=== PATIENT | female | born 1985 | race African-American/Black ===

== ENCOUNTER → 2021-09-28 13:30 | Outpatient (BNVA) | payer OTHER, SELFPAY | PROVIDERS: Visit Provider Psychiatry & Neurology Neurology ==

== ENCOUNTER → 2021-11-17 11:06 | Outpatient (REF) | payer OTHER, SELFPAY ==
--- NOTE | ~2021-11-17 | NM_ITS ---
EXAMINATION: NM BONE SCAN OF THE WHOLE BODY CLINICAL INFORMATION: Right frontal lobe lesion. COMPARISON: CT brain 10/13/2021 from [facility]. TECHNIQUE: Multiple gamma scintillation camera images of the whole body were performed 3 hours following the intravenous administration of 35 mCi Tc-99m MDP. FINDINGS: In the head, there is a focal area of increased activity seen in the right frontal horn which corresponds to the lytic lesion on the recent CT exam. On CT it measures 22.2 x 11.2 mm. In the thoracic cage and upper extremities, no abnormal activity seen in the thoracic cage or the upper extremities. In the spine, no abnormal activity seen in the entire spine. In the pelvis, no abnormal activity seen in the pelvis except for physiological activity in the the urinary bladder In the lower extremities, no abnormal activity seen in both lower extremities. No other definite bony abnormalities are noted. The urinary bladder and faint visualization of both kidneys are noted. NM/NM bone scan whole body IMPRESSION: Moderate increase activity seen in the right frontal bone corresponding to the adnexa termination lytic lesion on recent CT. The lesion is suspicious for primary bone lesion. Recommend surgical evaluation. Rest of the whole body bone scan appears unremarkable.
== END ==
LOC: HO.NUCMED 11:06
PROVIDERS: Visit Provider Internal Medicine Medical Oncology
DX: M89.9 Disorder of bone, unspecified (principal)
CPT/HCPCS: 78306; A9503

== ENCOUNTER → 2023-02-07 15:41 | Outpatient (BNVA) | payer OTHER, SELFPAY | PROVIDERS: Visit Provider Psychiatry & Neurology Neurology | DX: G43.109 Migraine with aura, not intractable, without status migrainosus (principal) | CPT/HCPCS: 99212 ==

== ENCOUNTER 2023-05-23 14:09 | Outpatient (AMB) | payer OTHER, SELFPAY ==
--- NOTE | 2023-05-23 14:19 | A.OFFVIS_ITS ---
Intake Vital Signs 05/23/23 14:21 Weight 250 lb BP 122/68 Blood Pressure Location Lt brachial Position Sitting Pulse 86 Pulse Source Pulse Oximeter Pulse Oximetry (%) 100 Oxygen Delivery Method Room Air Intake Visit Reasons: headaches, prev pt of RA-confirmed Intake Note: Pt here for fup headaches , complains today of tingling down (L) arm x 4 weeks Allergies Penicillins [PENICILLINS] Allergy (Unknown, Verified 05/23/23 14:24) UNKNOWN amoxicillin Allergy (Verified 05/23/23 14:24) Hives Medication List - Last Reconciled 05/23/23 by Belinda Love MD cholecalciferol (vitamin D3) 10 mcg PO DAILY magnesium oxide 400 mg PO DAILY metformin 500 mg PO BID norethindrone-ethin estradiol 1-35 mg-mcg (Alyacen) 1 tab PO DAILY riboflavin (vitamin B2) 400 mg PO DAILY sumatriptan succinate 50 mg PO Q2-4H PRN HPI HPI Comments History of Present Illness Details 37y/o female comes for follow up of migr nancy with aura.Her migraines have improved she has 1-2 a month Her migraines are usually preceded by blurry vision, tunnel, blind spots, black spots followed by headaches bitemporal or right temporal, pounding throbbing pain.she has nausea, photophobia , phonophobia and dizziness. no numbness or tingling , no weakness. she takes magnesium 400mg qhs , riboflavin qam. she takes imitrex . she stopped taking tylenol and ibuprofen she follows up with Dr. Cherry for a benign mass Now she reports left UE pain and tingling.She reports muscle tightness in left side of neck she denies any shooting pain she denies numbness or weakness. [facility] Medical History (Updated 05/23/23 @ 14:37 by Belinda Love MD) Paresthesias Frequent headaches Migraine with aura Polycystic bilateral ovaries Anemia Obesity Cervical spondylosis Migraine Surgical History H/O wisdom tooth extraction History of cholecystectomy Family History Father Diabetes mellitus Paternal Grandmother Breast cancer Mother Tonsil cancer Social History Household Members: Children Housing: Apartment Are you a primary rn urgent care to a significant other at home: No Do you presently have visiting nurse or other home services: No Alcohol intake: never Patient Tobacco Use Status: Never used Tobacco Substance Use Type: Marijuana service: No Current occupational status: employed Physical Exam Vital Signs: Last Vital Signs Pulse 86 05/23/23 14:21 BP 122/68 05/23/23 14:21 Pulse Ox 100 05/23/23 14:21 Oxygen Delivery Method Room Air 05/23/23 14:21 Const Orientation/consciousness: patient oriented x3 HEENT Head: Yes normocephalic and Yes atraumatic Eyes Pupils: Equal, round and reactive pupils present Neuro General: patient oriented x3, moves all extremities and no focal motor deficits Cranial nerves: Yes Facial sensation intact/muscles of mastication intact, Yes Equal, round and reactive pupils present, Yes Bilaterally intact EOM present, Yes Nystagmus not present, Yes Normal facial strength present and Yes Midline tongue present Cognition (Neuro): normal cognition Gait exam (Neuro): Normal gait present Motor exam (neuro): 5/5 motor strength present throughout Coordination: [id number] test normal Assessment & Plan Assessment & Plan (1) Migraine with aura: Code(s): G43.109 - Migraine with aura, not intractable, without status migrainosus (2) Frequent headaches: Code(s): R51.9 - Headache, unspecified (3) Paresthesias: Comment: left UE - related to cervical spondylosis Code(s): R20.2 - Paresthesia of skin Plan Magnesium 400mg qhs imitrex 50mg prn for migraines Decrease tylenol and ibuprofen use Track headaches continue Vit B 2 400mg qam tylenol as needed Patient sees Dr. Cherry for benign mass C spine X ray PT for neck Orders: Orders XR cervical spine 3V Today M47.812 - Spondylosis without myelopathy or radiculopathy, cervical region, R20.2 - Paresthesia of skin PT Evaluation and Treatment Today M47.812 - Spondylosis without myelopathy or radiculopathy, cervical region, R20.2 - Paresthesia of skin Medications: Discontinued topiramate Discontinued Reason: Patient no longer taking 25 mg PO DAILY 30 tabs 6RF Coding Level of Care Code Est Pt Level 4 (29879) Diagnoses Migraine with aura G43.109 Frequent headaches R51.9 Paresthesias R20.2
[2023-05-23 14:21] VITALS: BP 122/68; PULSE 86; O2SAT 100
== END 2023-05-23 14:39 | disposition home or self-care (01) ==
PROVIDERS: Visit Provider Psychiatry & Neurology Neurology
DX: G43.109 Migraine with aura, not intractable, without status migrainosus (principal); R51.9 Headache, unspecified; R20.2 Paresthesia of skin
CPT/HCPCS: 99214

== ENCOUNTER → 2023-05-23 14:09 | Outpatient (BNVA) | payer OTHER, SELFPAY | PROVIDERS: Visit Provider Psychiatry & Neurology Neurology | DX: G43.109 Migraine with aura, not intractable, without status migrainosus (principal); R51.9 Headache, unspecified; R20.2 Paresthesia of skin | CPT/HCPCS: 99212 ==

== ENCOUNTER 2023-11-20 15:32 | Outpatient (AMB) | payer OTHER, SELFPAY ==
--- NOTE | 2023-11-20 15:34 | A.OFFVIS_ITS ---
Intake Vital Signs 11/20/23 15:38 Height 5 ft 5 in Weight 250 lb BMI 41.6 BP 112/80 Blood Pressure Location Rt brachial Position Sitting Respiration 16 Pulse 81 Pulse Source Pulse Oximeter Pulse Oximetry (%) 99 Oxygen Delivery Method Room Air Intake Visit Reasons: 6 mo f/u for Headache-CONF Intake Note: Pt presents for a 6 month follow up for headaches. Pt states her headaches have worsened since her last visit. They happen twice a week, more intense and include vision loss . Recovery Rn Required: No Allergies Penicillins [PENICILLINS] Allergy (Unknown, Verified 11/20/23 15:35) UNKNOWN amoxicillin Allergy (Verified 11/20/23 15:35) Hives Medication List - Last Reconciled 11/20/23 by Belinda Love MD cholecalciferol (vitamin D3) 10 mcg PO DAILY magnesium oxide 400 mg PO DAILY metformin 500 mg PO BID riboflavin (vitamin B2) 400 mg PO DAILY sumatriptan succinate 50 mg PO Q2-4H PRN HPI HPI Comments History of Present Illness Details 37y/o female comes for follow up of migr nancy with aura.The headaches are well controlled but now she has frequent visual aura -lasting 30 minutes about 1-2 a week. she has double vision , blurry vision flashing lights and has a peripheral loss of vision and photophobia. she had eye exam last month . Her migraines are usually preceded by blurry vision, tunnel, blind spots, black spots followed by headaches bitemporal or right temporal, pounding throbbing pain.she has nausea, photophobia , phonophobia and dizziness. no numbness or tingling , no weakness. she takes magnesium 400mg qhs , riboflavin qam. she takes imitrex . she stopped taking tylenol and ibuprofen she follows up with Dr. Cherry for a benign mass - had a recent MRI and it is stable. The neck pain improved. [facility] Medical History (Updated 11/20/23 @ 16:03 by Belinda Love MD) Ocular migraine Paresthesias Frequent headaches Migraine with aura Polycystic bilateral ovaries Anemia Obesity Cervical spondylosis Migraine Surgical History H/O wisdom tooth extraction History of cholecystectomy Family History Father Diabetes mellitus Paternal Grandmother Breast cancer Mother Tonsil cancer Social History Household Members: Children Housing: Apartment Are you a primary day care home mother to a significant other at home: No Do you presently have visiting nurse or other home services: No Alcohol intake: never Patient Tobacco Use Status: Never used Tobacco Substance Use Type: Marijuana service: No Current occupational status: employed Physical Exam Vital Signs: Last Vital Signs Pulse 81 11/20/23 15:38 Resp 16 11/20/23 15:38 BP 112/80 11/20/23 15:38 Pulse Ox 99 11/20/23 15:38 Oxygen Delivery Method Room Air 11/20/23 15:38 BMI result Body Mass Index 41.6 Const Orientation/consciousness: patient oriented x3 HEENT Head: Yes normocephalic and Yes atraumatic Eyes Pupils: Equal, round and reactive pupils present Neuro General: patient oriented x3, moves all extremities and no focal motor deficits Cranial nerves: Yes Facial sensation intact/muscles of mastication intact, Yes Equal, round and reactive pupils present, Yes Bilaterally intact EOM present, Yes Nystagmus not present, Yes Normal facial strength present and Yes Midline to ngue present Cognition (Neuro): normal cognition Gait exam (Neuro): Normal gait present Motor exam (neuro): 5/5 motor strength present throughout Coordination: [id number] test normal Assessment & Plan Assessment & Plan (1) Migraine with aura: Code(s): G43.109 - Migraine with aura, not intractable, without status migrainosus (2) Ocular migraine: Code(s): G43.109 - Migraine with aura, not intractable, without status migrainosus Plan I will trial her on topiramate 50mg qhs Magnesium 400mg qhs imitrex 50mg prn for migraines Decrease tylenol and ibuprofen use Track headaches continue Vit B 2 400mg qam tylenol as needed Patient sees Dr. Cherry for benign mass Medications: New topiramate 50 mg PO BEDTIME 30 tabs 5RF Coding Level of Care Code Est Pt Level 4 (77708) Diagnoses Migraine with aura G43.109 Ocular migraine G43.109
[2023-11-20 15:38] VITALS: BP 112/80; PULSE 81; RESP 16; O2SAT 99; BMI 41.6
== END 2023-11-20 16:07 | disposition home or self-care (01) ==
PROVIDERS: Visit Provider Psychiatry & Neurology Neurology
DX: G43.109 Migraine with aura, not intractable, without status migrainosus (principal)
CPT/HCPCS: 99214

== ENCOUNTER → 2023-11-20 15:32 | Outpatient (BNVA) | payer OTHER, SELFPAY | PROVIDERS: Visit Provider Psychiatry & Neurology Neurology | DX: G43.109 Migraine with aura, not intractable, without status migrainosus (principal) | CPT/HCPCS: 99212 ==

== ENCOUNTER 2024-08-26 12:36 | Outpatient (AMB) | payer OTHER, SELFPAY ==
--- NOTE | 2024-08-26 12:38 | MHC.OFFVIS ---
Vital Signs 08/26/24 12:39 Height 5 ft 5 in Weight 245 lb BMI 40.8 Intake Visit Reasons: Follow up Intake Note: Patient presents for follow up Allergies Penicillins [PENICILLINS] Allergy (Unknown, Verified 08/26/24 12:40) UNKNOWN amoxicillin Allergy (Verified 08/26/24 12:40) Hives Medication List - Last Reconciled 08/26/24 by Belinda Love MD cholecalciferol (vitamin D3) 10 mcg PO DAILY magnesium oxide 400 mg PO DAILY metformin 500 mg PO BID riboflavin (vitamin B2) 400 mg PO DAILY sumatriptan succinate 50 mg PO Q2-4H PRN HPI Comments Details: 38y/o female comes for follow up of migraine with aura. she had COVID 4-5 weeks ago and has been having more headaches almost everyday.These headaches are not associated with visual aura or symptoms. She also reports on and off numbness in her right hand - when she sleeps. Her migraines are usually preceded by blurry vision, tunnel, blind spots, black spots followed by headaches bitemporal or right temporal, pounding throbbing pain.she has nausea, photophobia , phonophobia and dizziness. no numbness or tingling , no weakness. she stopped magnesium 400mg qhs , riboflavin qam.she also stopped topiramate. she takes imitrex . she stopped taking tylenol and ibuprofen she follows up with Dr. Cherry for a benign mass - had a recent MRI and it is stable. [facility] Medical History (Updated 08/26/24 @ 12:58 by Belinda Love MD) Cervicalgia Numbness and tingling in right hand Ocular migraine Paresthesias Frequent headaches Migraine with aura Polycystic bilateral ovaries Anemia Obesity Cervical spondylosis Migraine Surgical History H/O wisdom tooth extraction History of cholecystectomy Family History Father Diabetes mellitus Paternal Grandmother Breast cancer Mother Tonsil cancer Social History Household Members: Children Housing: Apartment Are you a primary child care centre director to a significant other at home: No Do you presently have visiting nurse or other home services: No Alcohol intake: never Patient Tobacco Use Status: Never used Tobacco Substance Use Type: Marijuana service: No Current occupational status: employed Physical Exam Vital Signs: BMI result Body Mass Index 40.8 Const Orientation/consciousness: patient oriented x3 HEENT Head: Yes normocephalic and Yes atraumatic Eyes Pupils: Equal, round and reactive pupils present Neck Other: mild tightness and tenderness in right side of neck Neuro General: patient oriented x3, moves all extremities and no focal motor deficits Cranial nerves: Yes Facial sensation intact/muscles of mastication intact, Yes Equal, round and reactive pupils present, Yes Bilaterally intact EOM present, Yes Nystagmus not present, Yes Normal facial strength present and Yes Midline tongue present Cognition (Neuro): normal cognition Gait exam (Neuro): Normal gait present Motor exam (neuro): 5/5 motor strength present throughout Coordination: [id number] test normal Assessment & Plan Assessment & Plan (1) Migraine with aura: Code(s): G43.109 - Migraine with aura, not intractable, without status migrainosus Category: Medical Qualifiers: Intractability: not intractable (2) Ocular migraine: Code(s): G43.109 - Migraine with aura, not intractable, without status migrainosus Category: Medical (3) Numbness and tingling in right hand: Code(s): R20.0 - Anesthesia of skin; R20.2 - Paresthesia of skin Category: Medical Plan Magnesium 400mg qhs imitrex 50mg prn for migraines Track headaches Restart Vit B 2 400mg qam and magnesium 400mg qhs PT for neck pain will consider EMG Right hand wrist splint tylenol as needed Patient sees Dr. Cherry for benign mass Orders: Orders PT Evaluation and Treatment Today M54.2 - Cervicalgia Medications: New [wrist splint] As directed- wear in right wrist every night 1 ea 0RF R20.0 - Anesthesia of skin, R20.2 - Paresthesia of skin Discontinued topiramate Discontinued Reason: Patient no longer taking 50 mg PO BEDTIME 30 tabs 5RF Coding Level of Care Code Est Pt Level 4 (59930) Complex EM visit Add On G2211 Diagnoses Migraine with aura G43.109 Intractability: not intractable Ocular migraine G43.109 Numbness and tingling in right hand R20.0; R20.2
--- OUTSIDE RECORDS SUMMARY | 2024-08-26 12:38 | XMS_ITS ---
Author Organization [facility], Address [address] [place] [address] Care Team Providers Care Catering Convention Services Manager Name Role Phone Corwin Roy Unavailable [phone] ALLERGIES, ADVERSE REACTIONS, ALERTS Substance Code Code System Type Reaction Severity Status Start Date End Date Penicillins RxNorm Drug allergy () 0 No known non-drug allergies RxNorm Other substance maryana rgy () 1 amoxicillin 723 RxNorm Drug allergy () 1 amoxicillin 723 RxNorm Drug allergy () 0 Penicillins Unknown Drug allergy () 1 Seasonal (unlisted or unknown allergen) RxNorm () 0 MEDICATIONS Medication Code Code System Start Date Stop Date Route Dosage Directions Fill Instructions metformin 0 RxNorm oral riboflavin (vitamin B2) RxNorm 023 doxycycline hyclate 2656694 RxNorm 2023 oral 1 metronidazole 352618 RxNorm 08/13 vaginal 1 magnesium RxNorm 2021 albuterol sulfate 5247519 RxNorm 10/03/19 24 inhalation 2 ondansetron 209593 RxNorm 11/02/19 23 2022 oral 2 OptiChamber Autumn [facility] 0 RxNorm 10/03/19 24 miscellaneo us medroxyprogestero ne acetate RxNorm 024 PROBLEMS Problem Name Code Code System Start Date End Date Stat us COVID-19, Exposure to (V71.83, Z03.818) 008542881 [facility] 07/29/2020 Inactive Upper Respiratory Infection, acute (465.9, J06.9) 32029495 [facility] 03/11/2021 Inactive Cough (R05) [facility] 03/14/2021 Inactive Chest pain, unspecified (786.50, R07.9) 448[facility] Inactive Contact with and (suspected) exposure to other viral communicable diseases (Z20.828) [facility] 06/13/2021 Inactive COVID-19, confirmed by laboratory testing (U07.1) 141101508 [facility] I nactive Headache, unspecified (R51.9) [facility] 09/06/2021 Inactive Polycystic ovarian syndrome [id number] [facility] Active Viral infection, unspecified (B34.9) 14547700 [facility] Inactive Acne, unspecified (L70.9) 64691601 [facility] Inactive Acute vaginitis (N76.0) 54192696 [facility] Inactive Fever, unspecified (R50.9) [facility] Inactive Frequency of [facility]icturition (R35.0) [facility] Inactive Encounter for test, result negative (Z32.02) [facility] Inactive Other specified diabetes mellitus 84055283 [facility] Active Acute serous otitis media, bilateral [id number] [facility]24 Active Furuncle, unspecified [id number] [facility] 06/08/2024 Active ENCOUNTERS Encounter Diagnosis Code Code System Date Stat us Acute cough [id number] [facility] 02/20/2024 Active IMMUNIZATIONS * None VITAL SIGNS Code Code System Vitals Name Date Value and Un its 8462-4 [facility] Blood Pressure-Diastolic 02/20/2024 75 mmHg 8480-6 [facility] Blood Pressure-Systolic 02/20/2024 1 11 mmHg 8867-4 [facility] Heart Rate 02/20/2024 89 /min 9279-1 [facility] Respiratory Rate 02/20/2024 18 /min 8310-5 [facility] Body Temperature 02/20/2024 98.5 F 04954-1 [facility] Oxygen Saturation 02/20/2024 97 % SOCIAL HISTORY * None PROCEDURES * None RESULTS Test Code Code System Description Result Value Date Ref erence Range [facility] SARS-CoV-2 Not Detected 02/20/2024 Not De tected [facility] Flu A Not Detected 02/20/2024 Not Det ected [facility] Flu B Not Detected 02/20/2024 Not Det ected MEDICAL EQUIPMENT * Patient has no history of implantable devices ASSESSMENT * None TREATMENT PLAN Type Description Date MEDICATION Take 100 mg capsule 02/20/2024 ORDERS Per our discussion y our symptoms are worrisome for a possible pulmonary embolus given your recent onset of difficulty breathing and shortness of breath while taking hormonal therapy. Your symptoms warrant further evaluation in the emergency department as you need further diagnostic testing. You have expressed an unwillingness to go to the emergency department and instead report you will follow-up with your primary care provider. Please call 911 and go directly to the emergency department if your shortness of breath and difficulty breathing worsening especially if you have chest pain. 02/20/2024 APPOINTMENT If not feeling esteban r in 3 day(s), please see your primary care physician. If you do not have a primary care physician, please return to this clinic. 02/20/2024 Labs Tests Test Name Code Code System Date Diane/Cepheid SARS-CoV-2 & Fl u A/B Multiplex Assay, Amplified Probe Molecular RT-PCR / NAAT 31186 CPT 02/20/2024 GOALS * None HEALTH CONCERNS * No Health Concerns FUNCTIONAL AND COGNITIVE STATUS * None CONSULTATION NOTES * None DISCHARGE SUMMARY NOTES * None HISTORY AND PHYSICAL NOTES * Reason for visit - Illness IMAGING NOTES * /Liberal History: Shortness of breath-Chest: The patient presents with a chief complaint of intermittent shortness of breath of the chest since 4 days ago. The patient describes the severity as 5/10, with 10 being the worst imaginable. The patient also reports cough as an abnormal symptom related to the comp laint.ExaminationDescription: Chest xray, frontal and lateral viewsComparisons:None provided. FindingsThe cardiomediastinal silhouette is within normal limits. There are peribronchial markings in both lungs suggesting reactive airway diseaseNo pleural effusions are seen.There is no pneumothorax present. The soft tissue and osseous structures appear unremarkable.IMPRESSION:There are peribronchial markings in both lungs suggesting reactive airway disease LABORATORY REPORT NARRATIVE NOTES * None PATHOLOGY REPORT NARRATIVE NOTES * None PROGRESS NOTES * None
--- OUTSIDE RECORDS SUMMARY | 2024-08-26 12:38 | XMS_ITS ---
Author Organization [facility], Address [address] [facility] [address] Care Team Providers Care Runstitching Machine Operator Name Role Phone Corwin Roy Unavailable [phone] ALLERGIES, ADVERSE REACTIONS, ALERTS Substance Code Code System Type Reaction Severity Status Start Date End Date Penicillins RxNorm Drug allergy () 0 No known non-drug allergies RxNorm Other substance maryana rgy () 1 Penicillins Unknown Drug allergy () 1 Seasonal (unlisted or unknown allergen) RxNorm () 0 amoxicillin 723 RxNorm Drug allergy () 1 amoxicillin 723 RxNorm Drug allergy () 0 MEDICATIONS Medication Code Code System Start Date Stop Date Route Dosage Directions Fill Instructions metformin 0 RxNorm oral riboflavin (vitamin B2) RxNorm 023 doxycycline hyclate 4632670 RxNorm 2023 oral 1 metronidazole 916465 RxNorm 08/13 vaginal 1 magnesium RxNorm 2021 albuterol sulfate 9432706 RxNorm 10/03/19 24 inhalation 2 ondansetron 629744 RxNorm 11/02/19 23 2022 oral 2 OptiChamber Autumn [facility] 0 RxNorm 10/03/19 24 miscellaneo us medroxyprogestero ne acetate RxNorm 024 PROBLEMS Problem Name Code Code System Start Date End Date Stat us COVID-19, Exposure to (V71.83, Z03.818) 985957710 [facility] 07/29/2020 Inactive Upper Respiratory Infection, acute (465.9, J06.9) 21614042 [facility] 03/11/2021 Inactive Cough (R05) [facility] 03/14/2021 Inactive Chest pain, unspecified (786.50, R07.9) 13274336 [facility] 06/10/2021 Inactive Contact with and (suspected) exposure to other viral communicable diseases (Z20.828) [facility] 06/13/2021 Inactive COVID-19, confirmed by laboratory testing (U07.1) 331268086 [facility] 09/02/2021 I nactive Headache, unspecified (R51.9) [facility] 09/06/2021 Inactive Polycystic ovarian syndrome 120512335 [facility] 08/07/2022 Active Viral infection, unspecified (B34.9) 44672248 [facility] 08/07/2022 Inactive Acne, unspecified (L70.9) 25088899 [facility] 11/01/2022 Inactive Acute vaginitis (N76.0) [facility]809067 [facility] Fever, unspecified (R50.9) [facility]ur[facility] (R35.0) [facility] Encounter for test, result negative (Z32.02) [facility] Inactive Other specified diabetes mellitus 24856902 [facility] Active Acute serous otitis media, bilateral 5115752721219495 [facility] 06/08/2024 Active Furuncle, unspecified 704963204 [facility] Active ENCOUNTERS Encounter Diagnosis Code Code System Date Stat Acute bronchitis, unspecified [id number] [facility] 10/03/19 24 Active IMMUNIZATIONS * None VITAL SIGNS Code Code System Vitals Name Date Value and Un its 8462-4 [facility] Blood Pressure-Diastolic 10/03/2023 81 mmHg 8480-6 [facility] Blood Pressure-Systolic 10/03/2023 1 22 mmHg 8867-4 [facility] Heart Rate 10/03/2023 82 /min 9279-1 [facility] Respiratory Rate 10/03/2023 18 /min 8310-5 [facility] Body Temperature 10/03/2023 97.7 F 66886-7 [facility] Oxygen Saturation 10/03/2023 98 % SOCIAL HISTORY * None PROCEDURES * None RESULTS Test Code Code System Description Result Value Date Ref erence Range [facility] SARS-CoV-2 Not Detected 10/03/2023 Not De tected [facility] Flu A Not Detected 10/03/2023 Not Det ected [facility] Flu B Not Detected 10/03/2023 Not Det ected MEDICAL EQUIPMENT * Patient has no history of implantable devices ASSESSMENT Assessment Findings are consistent with bronchitis. Use the albuterol inhaler with spacer 2 puffs every 4 hours as needed for cough and shortness of breath. Avoid smoking. Follow-up with your primary care doctor as needed. Return for any new or worsening symptoms. TREATMENT PLAN Type Description Date MEDICATION Take 10/03/2023 MEDICATION Take 10/03/2023 APPOINTMENT If not feeling esteban r in 3 day(s), please see your primary care physician. If you do not have a primary care physician, please return to this clinic. 10/03/2023 Labs Tests Test Name Code Code System Date Diane/Cepheid SARS-CoV-2 & Fl u A/B Multiplex Assay, Amplified Probe Molecular RT-PCR / NAAT 40475 CPT 10/03/2023 GOALS * None HEALTH CONCERNS * No Health Concerns FUNCTIONAL AND COGNITIVE STATUS * None CONSULTATION NOTES * None DISCHARGE SUMMARY NOTES * None HISTORY AND PHYSICAL NOTES * Reason for visit - Illness IMAGING NOTES * None LABORATORY REPORT NARRATIVE NOTES * None PATHOLOGY REPORT NARRATIVE NOTES * None PROGRESS NOTES * None
[2024-08-26 12:39] VITALS: BMI 40.8
== END 2024-08-26 13:03 | disposition home or self-care (01) ==
PROVIDERS: Visit Provider Psychiatry & Neurology Neurology
DX: G43.109 Migraine with aura, not intractable, without status migrainosus (principal); R20.0 Anesthesia of skin; R20.2 Paresthesia of skin
CPT/HCPCS: 99214; G2211

== ENCOUNTER → 2024-08-26 12:36 | Outpatient (BNVA) | payer OTHER, SELFPAY | PROVIDERS: Visit Provider Psychiatry & Neurology Neurology | DX: G43.109 Migraine with aura, not intractable, without status migrainosus (principal); R20.0 Anesthesia of skin; R20.2 Paresthesia of skin | CPT/HCPCS: 99212 ==

== ENCOUNTER 2025-05-27 15:26 | Outpatient (AMB) | payer OTHER, SELFPAY ==
--- NOTE | 2025-05-27 15:29 | A.OFFVIS_ITS ---
Vital Signs 05/27/25 15:30 Height 5 ft 5 in Weight 243 lb 8 oz BMI 40.5 BP 118/80 Blood Pressure Location Rt brachial Position Sitting Pulse 82 Pulse Source Pulse Oximeter Pulse Oximetry (%) 98 Oxygen Delivery Method Room Air Intake Visit Reasons: Follow up Intake Note: Follow up Numbness and tingling in right hand and Migraine Dermatology Procedural Physician Required: No Accompanied by: Self / Same As Patient Allergies Penicillins (PENICILLINS) Allergy (Unknown, Verified 05/27/25 15:30) UNKNOWN amoxicillin Allergy (Verified 05/27/25 15:30) Hives Medication List - Last Reconciled 05/27/25 by Belinda Love MD cholecalciferol (vitamin D3) 10 mcg PO DAILY cyanocobalamin (vitamin B-12) 1,000 mcg PO 3XW ferrous sulfate 325 mg PO QAM magnesium oxide 400 mg PO DAILY medroxyprogesterone 10 mg PO BID metformin 500 mg PO BID sumatriptan succinate 50 mg PO Q2-4H PRN [wrist splint As directed- wear in right wrist every night] HPI Comments Details: 39y/o female comes for follow up of migraine with aura.she is doing good .Rare migraines and self resolves. [facility]-5 weeks [facility] and has been having more headaches almost everyday.These headaches are not associated with visual aura or symptoms. She also reports on and off numbness in her right hand - when she sleeps. Her migraines are usually preceded by blurry vision, tunnel, blind spots, black spots followed by headaches bitemporal or right temporal, pounding throbbing pain.she has nausea, photophobia , phonophobia and dizziness. no numbness or tingling , no weakness. she stopped magnesium 400mg qhs , riboflavin qam.she also stopped topiramate. she takes imitrex . she stopped taking tylenol and ibuprofen she follows up with Dr. Cherry for a benign mass - had a recent MRI and it is stable. [facility] Medical History Cervicalgia Numbness and tingling in right hand Ocular migraine Paresthesias Frequent headaches Migraine with aura Polycystic bilateral ovaries Anemia Obesity Cervical spondylosis Migraine Surgical History H/O wisdom tooth extraction History of cholecystectomy Family History Father Diabetes mellitus Paternal Grandmother Breast cancer Mother Tonsil cancer Social History Household Members: Children Housing: Apartment Are you a primary managed care liaison to a significant other at home: No Do you presently have visiting nurse or other home services: No Alcohol intake: never Patient Tobacco Use Status: Never used Tobacco Substance Use Type: Marijuana service: No Current occupational status: employed Physical Exam Vital Signs: Last Vital Signs Pulse 82 05/27/25 15:30 BP 118/80 05/27/25 15:30 Pulse Ox 98 05/27/25 15:30 Oxygen Delivery Method Room Air 05/27/25 15:30 BMI result Body Mass Index 40.5 Const Orientation/consciousness: patient oriented x3 HEENT Head: Yes normocephalic and Yes atraumatic Eyes Pupils: Equal, round and reactive pupils present Neck Other: mild tightness and tenderness in right side of neck Neuro General: patient oriented x3, moves all extremities and no focal motor deficits Cranial nerves: Yes Facial sensation intact/muscles of mastication intact, Yes Equal, round and reactive pupils present, Yes Bilaterally intact EOM present, Yes Nystagmus not present, Yes Normal facial strength present and Yes Midline tongue present Cognition (Neuro): normal cognition Gait exam (Neuro): Normal gait present Motor exam (neuro): 5/5 motor strength present throughout Coordination: [id number] test normal Assessment & Plan Assessment & Plan (1) Migraine with aura: Code(s): G43.109 - Migraine with aura, not intractable, without status migrainosus Category: Medical Qualifiers: Intractability: not intractable Status migrainosus presence: without status migrainosus Qualified Code(s): G43.109 - Migraine with aura, not intractable, without status migrainosus Plan Magnesium 400mg qhs imitrex 50mg prn for migraines tylenol as needed Patient sees Dr. Cherry for benign mass Coding Level of Care Code Est Pt Level 3 (57502) Diagnoses Migraine with aura and without status migrainosus, not intractable G43.109 Intractability: not intractable Status migrainosus presence: without status migrainosus
[2025-05-27 15:30] VITALS: BP 118/80; PULSE 82; O2SAT 98; BMI 40.5
--- OUTSIDE RECORDS SUMMARY | 2025-05-27 16:20 | XMS_ITS | Clinical Summary ---
Author Organization [address] Address [address] [place] [phone] Phone Care Team Providers Care Circuit Walker Name Role Phone Troy Do MD Primary Care Provider Allergies Active Allergy Reactions Criticality Noted Date Comments Amoxicillin Rash High 10/30/2018 Rash/Dermatitis, Hives/Urticaria Penicillins Hives,Rash High 08/16/2016 Other reaction(s): Hives Medications cholecalciferol (VITAMIN D-3) 50 mcg (2,000 unit) tablet Take 1 Tablet by mouth daily. 4 Active magnesium oxide (MAG-OX) 400 mg magnesium tablet Take 1 Tablet by mouth daily. Active riboflavin (VITAMIN B2) 400 mg tablet Take 1 Tablet by mouth daily. 3 Active SUMAtriptan (IMITREX) 50 mg tablet May repeat dose once after 2 hours, if needed. 3 Active predniSONE (DELTASONE) 10 mg tablet Take 2 tabs PO daily for 3 days then 1 tab PO daily for 4 days 10 tablet 5 Active Additional Information Patient not taking.Reported on 01/20/2025 medroxyPROGESTE Tulio (PROVERA) 10 mg tablet Take 1 tablet (10 mg total) by mouth 2 (two) times a day for 10 days. 20 tablet 1 5 Active medroxyPROGESTE Tulio (PROVERA) 5 mg tablet Take 2 tablets (10 mg total) by mouth 1 (one) time each day for 10 days. To induce menses every other month 20 tablet 6 5 Active FreeStyle Test test stripIndication s:Pre-diabetes Check blood sugar 1 times a day. 100 each 11 5 12/12/19 26 Active blood-glucose meter kitIndications: Pre-diabetes USE DAILY OR DIRECTED FOR MONITORING OF DIABETES. 1 kit 5 Active lancets 30 gauge miscIndications :Pre-diabetes CHECK BLOOD SUGAR 1 TIMES A DAY OR DIRECTED 100 each 1 5 Active cyanocobalamin (VITAMIN B-12) 1,000 mcg tablet Take 1 tablet (1,000 mcg total) by mouth 3 (three) times a week. 45 tablet 5 Active ferrous sulfate 325 mg (65 mg iron) EC tablet TAKE 1 TABLET (325 MG TOTAL) BY MOUTH DAILY WITH BREAKFAST DO NOT CRUSH, CHEW, OR SPLIT 90 tablet 1 5 Active metFORMIN XR (GLUCOPHAGE-XR) 500 mg 24 hr tabletIndicatio ns:Polycystic ovarian syndrome TAKE 1 TABLET BY MOUTH TWICE A DAY BEFORE MEALS 180 tablet 5 Active Immunizations Immunization Administration Dates Next Due MMR, measles mumps and rubel la Live (Priorix; M-M-R II) 12mo and older 12/11/1987 Tdap Tetanus diptheria acell ular pertussis (Boostrix; Adacel) 7yo and older 09/04/2017 Surgical History Surgery Date Site/Laterality Comments CHOLECYSTECTOMY 2006 PROCEDURE: HISTORICAL CHOLECYSTECTOMY WISDOM TOOTH EXTRACTION PROCEDURE: HISTORICAL WISDOM TEETH EXTRACTION Medical History Medical History Date Comments PCOS (polycystic ovarian syndrome) 08/16/2016 DX:PCOS (polycystic ovarian syndrome); COMMENT: LINE D[employer] Gisela Arrieta at [facility] [employer] BMI 40.0-44.9, adult (CMS/HC C V24, CMS/HCC V28) 11/20/2018 DX:BMI 40.0-44.9, adult (HCC ) Multinodular goiter DX:Multinodu lar goiter Osteoma DX:Osteoma Migraine headache DX:Migraine he adache Prediabetes DX:Prediabetes Family History Medical History Relation Name Comments Diabetes Father Hypertension Father Thyroid disease Father Throat cancer Mother Prostate cancer Paternal Grandfather Breast cancer Paternal Grandmother 80s Relation Name Status Comments Brother Alive x 2, healthy Father Maternal Grandfather Maternal Grandmother Mother Alive Healthy Paternal Grandfather Paternal Grandmother 80s Alive Social History Tobacco Use Types Packs/Day Years Used Date Smoking Tobacco: Never Smokeless Tobacco: Never Tobacco Cessation:Counseling Given: Not Answered Alcohol Use Standard Drinks/Week Comments Not Currently 0 (1 standard drink = 0.6 oz pur e alcohol) Comments No Sex and Gender Information Value Date Recorded Sex Assigned at Not on file Legal Sex Female 12:24 PM EST Gender Identity Not on file Sexual Orientation Not on file Obstetrics History Para Term AB IAB SAB Ectopic Multiple Livin g Live Births 1 1 1 Date Outcome GA Total Labor Labor/2nd/3rd Weight Sex Type Anes PTL Binta A1 A5 Name Clin Term Last Filed Vital Signs Vital Sign Reading Time Taken Comments Blood Pressure 132/80 01/20/2025 5:53 PM EDT Pulse 109 01/20/2025 1:05 PM EDT Temperature 36.8 C (98.3 F) 01/20/2025 1:05 PM EDT Respiratory Rate 18 01/20/2025 1:05 PM EDT Oxygen Saturation 99% 09/10/2024 2:42 PM EST Inhaled Oxygen Concentration - - Weight 111 kg (244 lb) 01/20/2025 1:05 PM EDT Height 162.6 cm (5' 4 ) 01/20/2025 1:05 PM EDT Body Mass Index 41.88 01/20/2025 1:05 PM EDT Plan of Treatment Upcoming Encounters Date Type Department Care Team (Late st Contact Info) Description 09/10/2025 2:30 PM EST Office Visit Endocrinology - [address] [phone] Lacie Ramirez MD [address] [place] [address] Health Maintenance Due Date Last Done Comments Hepatitis B Vaccines (2 of 3 - 3-dose series) 01/09/1987 1986 HPV Vaccines (2 - 3-dose SCD M series) 01/22/2014 12/25/2013 Social Influencers of Health Screening 08/05/2022 Depression Screening 08/27/2024 COVID-19 Vaccine (2023-2 5 season) 2025 Influenza Vaccine (#1) 2025 5, 07/17/2014 DTaP,Tdap,and Td Vaccines (2 - Td or Tdap) 09/04/2027 09/04/2017 Cholesterol Screening (Lipid Panel) 04/17/2028 04/17/2023, 10/30/2018, 10/30/2018 Cervical Cancer Screening: HPV 01/02/2029 01/03/2024 RSV Immunization Adult Patients (1 - 1-dose 75+ series) 2061 MMR Vaccines Completed 12/11/1987 HIV Screening Completed 01/03/2024, 01/03/2024 Hepatitis C Screening Completed 01/03/2024 HIB Vaccines Aged Out No longer eligi ble based on patient's age to complete this topic Hepatitis A Vaccines Aged Out No long er eligible based on patient's age to complete this topic IPV Vaccines Aged Out No longer eligi ble based on patient's age to complete this topic Meningococcal ACWY Vaccine Aged Out N o longer eligible based on patient's age to complete this topic Meningococcal B Vaccine Aged Out No l onger eligible based on patient's age to complete this topic Pneumococcal Vaccine: Pediatrics (0 to 5 Years) and At-Risk Patients (6 to 49 Years) Aged Out No longer eligible b ased on patient's age to complete this topic RSV Immunization Patients Under 20 months Aged Out No longer eligible b ased on patient's age to complete this topic Varicella Vaccines Aged Out No longer eligible based on patient's age to complete this topic Procedures Procedure Name Priority Date/Time Associated Diagnosis Comments HPV Routine 01/03/2024 HEPATITIS C SCREENING Routine 01/03/2024 HIV SCREENING Routine 01/03/2024 LIPID PANEL Routine 04/17/2023 from Last 3 Months or Most Recently Relevant to Health Maintenance Results * Cervical Cancer Screening: HPV (01/03/2024) Cervical Cancer Screening: HPV negative, abstracted Historical Provider MD HEALTH MAINTENANCE Final Result * HIV Screening (01/03/2024) HIV Screening abstracted Historical Provider HEALTH MAINTENANCE Final Result * Hm Hepatitis C Screening (01/03/2024) HM Hepatitis C Screening abstracted Historical Provider HEALTH MAINTENANCE Final Result * Lipid panel (04/17/2023) LDL/HDL Ratio 3 0 - 4 Triglycerides 117 0 - 150 mg/dL Cholesterol 151 0 - 200 mg/dL HDL 54 >=40 mg/dL LDL Cholesterol 74 0 - 100 mg/dL Blood Venous blood specimen / Unknown Historical Provider LAB BLOOD ORDERABLES Fanta l Result from Last 3 Months or Most Recently Relevant to Health Maintenance Insurance [facility] [employer] [facility] Care Teams Circuit Walker Relationship Specialty Start Date End Date Troy Do MD [address] [place] [address] PCP - General Internal Medicine 11/01/21
--- OUTSIDE RECORDS SUMMARY | 2025-05-27 16:20 | XMS_ITS | Clinical Summary ---
Author Organization [facility] Address [address] [place] [address] Care Team Providers Care Drug Abuse Social Worker Name Role Phone Gisela Peralta MD Primary Care Provider [phone] Allergies Active Allergy Reactions Criticality Noted Date Comments Penicillins Hives 10/26/2021 Medications Medication Sig Dispensed Refills Start Date End Date Status Magnesium 250 MG TABS Take by mouth daily. 0 Active Riboflavin 400 MG TABS Take by mouth daily. 0 Active Multiple Vitamins-Minerals (DAILY MULTIVITAMIN PO) Take by mouth. 0 Acti ve Active Problems Problem Noted Date Diagnosed Date Bone lesion 10/26/2021 Social History Tobacco Use Types Packs/Day Years Used Date Smoking Tobacco: Never Assessed Sex and Gender Information Value Date Recorded Sex Assigned at Not on file Gender Identity Not on file Sexual Orientation Not on file Job Start Date Occupation Industry Not on file Not on file Not on file Last Filed Vital Signs Vital Sign Reading Time Taken Comments Blood Pressure 142/90 11/23/2021 3:40 PM EDT Pulse 80 11/23/2021 3:40 PM EDT Temperature 36.9 C (98.5 F) 11/23/2021 3:40 PM EDT Respiratory Rate - - Oxygen Saturation 100% 11/23/2021 3:40 PM EDT Inhaled Oxygen Concentration - - Weight 108 kg (238 lb) 11/23/2021 3:40 PM EDT Height 163.1 cm (5' 4.2 ) 11/23/2021 3:40 PM EDT Body Mass Index 40.6 11/23/2021 3:40 PM EDT Plan of Treatment Health Maintenance Due Date Last Done Comments Hepatitis B Vaccines (1 of 3 - 3-dose series) 1986 Hepatitis C Screening 1986 COVID-19 Vaccine (#1) 06/11/1987 Depression Screening 1998 Preventative Health Evaluation 2004 Cervical Cancer Screening (P ap Smear) 12/11/2007 Influenza Vaccine (#1) 2025 08/12/2015 DTap / Tdap / Td (2 - Td or Tdap) 09/04/2027 018 Pneumococcal Vaccine Aged Out No long er eligible based on patient's age to complete this topic RSV Ped < 20 months Aged Out No longe r eligible based on patient's age to complete this topic Care Teams Drug Abuse Social Worker Relationship Specialty Start Date End Date Gisela Peralta MD PCP - General Internal Medicine 11/23/21
== END 2025-05-28 08:36 | disposition home or self-care (01) ==
LOC: HO.HSMS 15:27
PROVIDERS: Visit Provider Psychiatry & Neurology Neurology
DX: G43.109 Migraine with aura, not intractable, without status migrainosus (principal)
CPT/HCPCS: 99213

== ENCOUNTER → 2025-05-27 15:26 | Outpatient (BNVA) | payer OTHER, SELFPAY | PROVIDERS: Visit Provider Psychiatry & Neurology Neurology | DX: G43.109 Migraine with aura, not intractable, without status migrainosus (principal); R20.0 Anesthesia of skin; R20.2 Paresthesia of skin | CPT/HCPCS: 99212 ==